=== PATIENT | male | born 1980 | race Caucasian/White ===

== ENCOUNTER 2016-10-18 09:38 | Emergency (ER) | payer SELFPAY ==
[~2016-10-18] VITALS: Ht 170.2 cm; Wt 90.7 kg
[~2016-10-18 09:38] MED LIST: BACTRIM DS TAB1 EACH PO; FLUOXETINE HCL20 MG PO; TRAZODONE HCL50 MG PO; [UNRECOGNIZED DRUG - OTHER]
[2016-10-18] MEDS ORDERED: BACTRIM DS TAB1 EACH PO (10:33)
== END 2016-10-18 11:07 | disposition home or self-care (01) ==
LOC: ED 09:38
DX: N61.1 Abscess of the breast and nipple (principal); F32.9 Major depressive disorder, single episode, unspecified; F17.200 Nicotine dependence, unspecified, uncomplicated
CPT/HCPCS: 96372; 99283; J0696